=== PATIENT | male | born 2000 | race African-American/Black ===

== ENCOUNTER 2022-08-02 14:43 | Emergency (ER) | payer OTHER, SELFPAY ==
[2022-08-02 14:47] VITALS: BP 131/78; PULSE 86; RESP 16; TEMP 37.3; O2SAT 97
--- NOTE | 2022-08-02 15:19 | ED.GENADUL_ITS ---
Discharge Plan Disposition Patient Disposition: Home Discharge Details Chief Complaint: Laceration Clinical Impression: Finger laceration Primary Care Provider: Unknown,Unknown ED Provider: Anton Pickard Home Meds and New Rx's Prescriptions: No Action albuterol sulfate 90 mcg/actuation HFA aerosol inhaler 2 puff INHALATION PRN PRN Vyvanse 50 mg Capsule 75 mg PO DAILY Discharge Instructions Instructions: Finger Laceration (ED) Additional Instructions: Please keep wound clean and dry. Please return to the emergency department for any worsening symptoms. Medical Decision Making 21-year-old male presents after sustaining 1.5 cm minimally gaping laceration to distal aspect of third digit of left hand, cut on knife used to cut clean vegetables, hemostatic no foreign body, flexion extension intact neurovascular exam intact, no foreign bodies appreciated, patient had cleaned wound before arrival, patient's tetanus is up-to-date, will likely need 1-2 simple interrupted sutures to prevent splitting, will apply LET gel will irrigate wound; home with care instructions and return precautions 16: 12 patient was comfortably no acute distress. 2 x 5-0 Vicryl simple interrupted sutures applied to wound. Clean dressing, home care instructions and return precautions given. HPI General Date/Time Provider Initiated Documentation: 08/02/22 15:00 . HPI Narrative: 21-year-old male presents after sustaining laceration to left middle finger at work on a knife that was being used to cut clean vegetables. Laceration to tip of finger. Hemostatic with pressure. Last tetanus shot within the last year and a half Related Data Home Medications Medication Instructions Recorded Confirmed albuterol sulfate 90 mcg/actuation 2 puff inhalation PRN PRN 08/02/22 08/02/22 aerosol inhaler lisdexamfetamine 50 mg capsule 75 mg PO DAILY 08/02/22 08/02/22 (Vyvanse) Allergies Allergy/AdvReac Type Severity Reaction Status Date / Time No Known Allergies Allergy Unverified 08/02/22 14:51 General Stated Complaint: Laceration MILAN: 4 Review of Systems Narrative: Review of Systems Constitutional: negative Eyes: negative ENT: negative Cardiovascular: negative Respiratory: negative Gastrointestinal: negative : negative Musculoskeletal: negative Skin: Finger laceration Neurologic: negative Psych: negative PFSH All Active Problems (Updated 08/02/22 @ 16:13 by Anton Pickard MD) Finger laceration (Acute) Social History Smoking risk assessment performed?: No Exam Narrative Exam Narrative: Physical Examination General: alert, awake, cooperative, resting comfortably, no acute distress Skin: 1.5 cm minimally gaping laceration to distal tip of left third digit minimal involvement to distal nail, hemostatic, no foreign bodies, proximal and distal flexion intact extension intact median radial and ulnar nerve sensory exam intact strong radial pulse Neuro: AAOx3, normal speech, moving all extremities Psych: Appropriate mood and affect Course Vital Signs Vital signs: Vital Signs Temperature 37.3 C 08/02/22 14:47 Pulse 86 08/02/22 14:47 Respiratory Rate 16 08/02/22 14:47 Blood Pressure 131/78 08/02/22 14:47 Pulse Oximetry 97 08/02/22 14:47 Temperature 37.3 C 08/02/22 14:47 Temperature Source Skin 08/02/22 14:47 Pulse 86 08/02/22 14:47 Respiratory Rate 16 08/02/22 14:47 Blood Pressure 131/78 08/02/22 14:47 Blood Pressure Position Sitting 08/02/22 14:47 Pulse Oximetry 97 08/02/22 14:47 Oxygen Delivery Method Room Air 08/02/22 14:47 Oxygen Flow Rate 0 08/02/22 14:47 Pain Level 7 08/02/22 14:47 Procedures Laceration Laceration 1: Site: hand Side (If applicable): left Size (cm): 1.5 Description: linear Depth: simple, single layer Local Anesthetic: other anesthetic (LET) Pre-repair: irrigated extensively Skin layer closed with: vicryl Size (cm): 5-0 Number of sutures: 2 Technique: simple, interrupted
[2022-08-02] MEDS: Lidocaine/Epinephri/Tetracaine Topical Gel 3 ML TP (15:27)
[2022-08-02 16:10] VITALS: BP 139/86; PULSE 74; RESP 18; TEMP 37.4; O2SAT 100
== END 2022-08-02 16:27 | disposition home or self-care (01) ==
PROVIDERS: Emergency Provider Emergency Medicine
DX: S61.213A Laceration without foreign body of left middle finger without damage to nail, initial encounter (principal); Y99.0 Civilian activity done for income or pay; W26.0XXA Contact with knife, initial encounter
CPT/HCPCS: 12001; 99283

== ENCOUNTER 2023-05-23 16:06 | Outpatient (REF) | payer SELFPAY ==
[2023-05-26 13:47] LABS: Hemoglobin S Screen Negative (Negative)
== END 2023-05-23 16:07 | disposition home or self-care (01) ==
LOC: LBN 16:06
PROVIDERS: Visit Provider Physician Assistant Medical
DX: Z13.9 Encounter for screening, unspecified (principal)
CPT/HCPCS: 85660